=== PATIENT | male | born 1950 | race Two or more races ===

== ENCOUNTER 2021-05-09 19:00 | Emergency (ER) | payer OTHER ==
[~2021-05-09] VITALS: Ht 170.2 cm; Wt 99.8 kg
[~2021-05-09 19:00] MED LIST: ANTIHIPERTENSIVO; DIURETICO
[2021-05-09] MEDS ORDERED: LOSARTAN-HCTZ1 EAC1 (19:22)
[2021-05-09] MEDS ORDERED: LIPITOR20 MG (19:23)
[2021-05-10] MEDS ORDERED: KETO10TA2 PO (00:48)
== END 2021-05-10 01:09 | disposition home or self-care (01) ==
LOC: ER 19:00
DX: S00.03XA Contusion of scalp, initial encounter (principal); W18.09XA Striking against other object with subsequent fall, initial encounter; Y93.89 Activity, other specified; Y92.59 Other trade areas as the place of occurrence of the external cause; Y99.8 Other external cause status